=== PATIENT | female | born 1930 | race Caucasian/White ===

== ENCOUNTER → 2019-04-06 | Outpatient (CLI) | payer OTHER ==
--- NOTE | 2019-04-06 13:00 | Diagnostic Imaging Report ---
INDICATION: Left hip pain. TIME OF EXAM: 11:34 a.m. Two views of the left hip were obtained. There is generalized demineralization. Femoroacetabular alignment is normal. There is superior joint space narrowing noted. Femoral head and neck appear to be intact. No fracture is seen. There is a questionable fracture of the left superior pubic ramus, age indeterminate. IMPRESSION: Demineralization and left hip degenerative change. No acute hip fracture is identified. There is a questionable age indeterminate fracture of the left superior pubic ramus. CT through the pelvis may be useful for further evaluation. Dictated by: Dictated on workstation # [id number]
== END ==
LOC: RAD FS 11:29
PROVIDERS: ATTEND Nurse Practitioner
DX: M16.12 Unilateral primary osteoarthritis, left hip (principal)
CPT/HCPCS: 73502

== ENCOUNTER → 2019-06-05 | Outpatient (CLI) | payer OTHER ==
--- NOTE | 2019-06-05 15:22 | Diagnostic Imaging Report ---
INDICATION: Right hip pain. TIME OF EXAM: 2:46 PM FINDINGS: 3 views of the right hip are obtained. There is an intramedullary damion extending through the right femur. Femoral acetabular alignment is normal. The femoral head and neck are intact. No fractures are seen. Right-sided rami appear intact. IMPRESSION: Postop changes in the right femur. No acute bony abnormality is detected. Dictated by: Dictated on workstation # [id number]
== END ==
LOC: RAD FS 14:36
PROVIDERS: ATTEND Nurse Practitioner
DX: M25.551 Pain in right hip (principal); Z98.890 Other specified postprocedural states
CPT/HCPCS: 73502

== ENCOUNTER 2019-06-28 11:59 | Emergency (ER) | payer MEDICARE, OTHER ==
[~2019-06-28] VITALS: Ht 165 cm; Wt 50.0 kg
--- NOTE | 2019-06-28 12:07 | ED Neurological Problem ---
General Stated Complaint: STROKE LIKE SYMPTOMS Source: EMS Exam Limitations: clinical condition History of Present Illness Date Seen by Provider: Jun 28, 2019 Time Seen by Provider: 11:55 Initial Comments The patient is an 89-year-old female brought in by EMS for evaluation of strokelike symptoms. She was found by her proximally 45 minutes prior to arrival and was noted to have some right-sided weakness. He had left the home to run some errands and stated that she was last known to be well approximately 3 hours prior to arrival (approx 0900). EMS reports an elevated blood pressure upon their arrival and states that she has been gazing to the left. Family is not present at this time and the patient is unable to provide any history due to her condition. It is unclear if the patient is a full code. Rhythm strip provided by EMS suggest atrial fibrillation but it is unclear if the patient is on anticoagulation. Timing/Duration: 1-3 hours Severity: severe Associated Symptoms: other (unable to speak, right-sided weakness) Allergies and Home Medications Allergies Coded Allergies: No Known Drug Allergies (Unverified , 06/28/19) Patient Home Medication List Home Medication List Reviewed: Yes Review of Systems Review of Systems Constitutional: no symptoms reported Eyes: No Symptoms Reported Ears, Nose, Mouth, Throat: no symptoms reported Respiratory: no symptoms reported Cardiovascular: no symptoms reported Gastrointestinal: no symptoms reported Genitourinary: no symptoms reported Musculoskeletal: no symptoms reported Skin: no symptoms reported Psychiatric/Neurological: Unable to Move Lower Ext, Unable to Move Upper Ext (cannot move right extremity), Weakness (on right side), Other Hematologic/Lymphatic: No Symptoms Reported All Other Systems Reviewed Negative Unless Noted: Yes Past Abjrlhx-Csvihy-Ycloui Hx Past Med/Social Hx: Reviewed Nursing Past Med/Soc Hx Physical Exam Vital Signs Vital Signs - First Documented 06/28/19 12:23 Temp 36.4 Pulse 87 Resp 18 B/P (MAP) 201/92 (128) Pulse Ox 95 O2 Delivery Room Air Capillary Refill : Height, Weight, BMI Height: '" Weight: lbs. oz. kg; BMI Method: General Appearance: WD/WN, no apparent distress HEENT: pharynx normal, other (gaze deviation to left, PERRLA) Neck: full range of motion, supple, normal inspection Respiratory: lungs clear, normal breath sounds, no respiratory distress, no accessory muscle use Cardiovascular: no edema, no JVD, tachycardia, irregularly irregular Peripheral Pulses: 2+ Radial Pulses (R), 2+ Radial Pulses (L) Gastrointestinal: normal bowel sounds, non tender, soft, no pulsatile mass Extremities: non-tender, normal inspection, no pedal edema Neurologic/Psychiatric: alert, normal mood/affect, other (unable to speak, gaze preference to the left, right-sided weakness) Crainal Nerves: PERRL, other (not speaking, no facial droop noted) Skin: normal color, warm/dry Stroke Onset of Symptoms Date of Onset of Symptoms: Jun 28, 2019 Time of Symptom Onset: 09:00 Onset of Symptoms: Yes Symptoms onset unknown: Yes NIH Stroke Scale Assessment Select: Initial Level of Consciousness: 1=Aroused by mild stimuli (1), Level of Consciousness-Questions: 2=Answer neither question (2), LOC Commands: 1=Performs one task (1), Gaze: Forced Deviation (2), Visual Pugh: 0=No visual loss (0), Facial Movement (Facial Paresis): 1=Minor paralysis (1), Motor Function-Arms Left: 3=No effort/gravity (3), Motor Function-Legs Right: 4=No movement (4), Motor Function-Legs Left: 4=No movement (4), Limb Ataxia: 0=Absent (0), Sensory: 2=Severe to total loss (2), Best Language: 3=Mute (3), Dysarthria: 2=Severe dysarthria (2), Extinction & Inattention: 2=ProfoundHemiInattention (2), Total: 27 Stroke Thrombolytic Exclusion Intracranial Hemorrhage: Yes IV - TPa Received IV - TPa Procedure Performed?: No Progress/Results/Core Measures Results/Orders Lab Results Laboratory Tests Test 06/28/19 12:06 06/28/19 12:10 06/28/19 12:25 Range/Units Glucometer 196 H 70-110 MG/DL White Blood Count 16.1 H 4.3-11.0 10^3/uL Red Blood Count 3.93 L 4.35-5.85 10^6/uL Hemoglobin 13.1 11.5-16.0 G/DL Hematocrit 39 35-52 % Mean Corpuscular Volume 100 H 80-99 FL Mean Corpuscular Hemoglobin 33 25-34 PG Mean Corpuscular Hemoglobin Concent 33 32-36 G/DL Red Cell Distribution Width 12.3 10.0-14.5 % Platelet Count 337 130-400 10^3/uL Mean Platelet Volume 8.7 7.4-10.4 FL Neutrophils (%) (Auto) 82 H 42-75 % Lymphocytes (%) (Auto) 11 L 12-44 % Monocytes (%) (Auto) 5 0-12 % Eosinophils (%) (Auto) 1 0-10 % Basophils (%) (Auto) 1 0-10 % Neutrophils # (Auto) 13.2 H 1.8-7.8 X 10^3 Lymphocytes # (Auto) 1.7 1.0-4.0 X 10^3 Monocytes # (Auto) 0.8 0.0-1.0 X 10^3 Eosinophils # (Auto) 0.1 0.0-0.3 10^3/uL Basophils # (Auto) 0.1 0.0-0.1 10^3/uL Prothrombin Time 13.1 12.2-14.7 SEC INR Comment 1.0 0.8-1.4 Activated Partial Thromboplast Time 20 L 24-35 SEC Urine Color YELLOW Urine Clarity CLEAR Urine pH 7.0 5-9 Urine Specific [place] 1.025 H 1.016-1.022 Urine Protein NEGATIVE NEGATIVE Urine Glucose (UA) TRACE H NEGATIVE Urine Ketones TRACE H NEGATIVE Urine Nitrite NEGATIVE NEGATIVE Urine Bilirubin NEGATIVE NEGATIVE Urine Urobilinogen 0.2 < = 1.0 MG/DL Urine Leukocyte Esterase NEGATIVE NEGATIVE Urine RBC (Auto) NEGATIVE NEGATIVE Urine RBC NONE /HPF Urine WBC NONE /HPF Urine Squamous Epithelial Cells RARE /HPF Urine Crystals NONE /LPF Urine Bacteria NONE /HPF Urine Casts NONE /LPF Urine Mucus NEGATIVE /LPF Urine Culture Indicated NO My Orders Orders - KAI IGLESIAS DO Ct Head Wo-R/O Stroke (06/28/19 12:01) Cbc With Automated Diff (06/28/19 12:01) Protime With Inr (06/28/19 12:01) Partial Thromboplastin Time (06/28/19 12:01) Comprehensive Metabolic Panel (06/28/19 12:01) Troponin I Fs (06/28/19 12:01) Ua Culture If Indicated (06/28/19 12:01) Chest 1 View Ap/Pa Only (06/28/19 12:01) Catheter(Urinary) Insert & Ass 03,15 (06/28/19 12:) Ekg Tracing (06/28/19 12:) Nothing By Mouth (06/28/19 Dinner) Accucheck Stat ONCE (06/28/19:) Ed Iv/Invasive Line Start (06/28/19:) Ed Iv/Invasive Line Start (06/28/19 12:) Vital Signs Stroke Patient Q15M (06/28/19 12:) O2 (06/28/19 12:) Intake & Output 06,14,22 (06/28/19 12:) Monitor-Rhythm Ecg Trace Only (06/28/19:) Dysphagia Screening Tool (06/28/19:) Manual Differential (06/28/19 12:10) Nicardipine Iv For Drip (Cardene I.V. (O (06/28/19 12:27) Ns (Ivpb) (Sodium Chloride 0.9%) (06/28/19 12:28) Vital Signs/I&O 06/28/19 12:23 Temp 36.4 Pulse 87 Resp 18 B/P (MAP) 201/92 (128) Pulse Ox 95 O2 Delivery Room Air Progress Progress Note : Progress Note @1207 - [facility] transfer line contacted this time. Awaiting cloudy images to be sent and neurosurgeon a call back. @1230 - Case was d/w Dr. Montenegro (transfer) and Dr. Rand (neurosx) who accepts the ER to ER transfer. They stated to titrate the patient's blood pressure to a systolic between 140 and 160. Cardene drip started. The neurosurgeon states it is very unlikely the patient will survive this and may not even survive the transfer. This was discussed at length with the patient's son and who state that they do not want her to be resuscitated, specifically they want her to be a DNR/DNI at this time. I also discussed this with the patient's daughter who is a pharmacist. She also agreed. The patient is critical which will be transported by EMS at this time to [facility]. Comment @1205 - Atrial fibrillation with RVR, rate of 105, normal axis, no acute ischemic findings noted, no STEMI, reviewed and interpreted by myself Departure Impression Primary Impression: Intraparenchymal hemorrhage of brain Additional Impressions: Right sided weakness Atrial fibrillation Hypertension Anticoagulated Disposition: 02 XFER SHT-TRM HOSP Condition: Critical Admissions Decision to Admit Reason: Admit from ER (General) Transfer Transfer Reason: Exceeds level of care Time Spoke to Accepting Phy: 12:30 Transfer Progress Notes This was discussed with the transfer physician Dr. Montenegro and also the neurosurgeon Dr. Rand at [facility]. Accepts the ER to ER transfer and agree with the plan to start nicardipine and would like the systolic blood pressure to be maintained between 140 and 160. This is been discussed with EMS. Dr. Rand points out that the patient is extremely critical and not only is unlikely to survive but is also unlikely to survive the transfer. This is been discussed at length with the family who agree that the patient should be a DO NOT RESUSCITATE/DNI. Transfer Time: 12:58 Transfer Facility: [facility] Method of Transfer: EMS Departure-Patient Inst. Referrals: CHONG APODACA MD (PCP/Family) Primary Care Physician KAI IGLESIAS DO Jun 28, 2019 12:07
[2019-06-28] MEDS ORDERED: HYDR-4342 (12:22)
[2019-06-28] MEDS ORDERED: APIX2.5T (12:22)
[2019-06-28] MEDS ORDERED: DILT-27 (12:22)
[2019-06-28] MEDS ORDERED: TIZA2TAB4 (12:22)
[2019-06-28] MEDS ORDERED: ATOR10TA66 (12:22)
[2019-06-28] MEDS ORDERED: PROP60CA36 (12:22)
[2019-06-28 12:25] LABS: HEMATOCRIT 39 % (35-52); HEMOGLOBIN 13.1 G/DL (11.5-16.0); MEAN CORPUSCULAR HEMOGLOBIN 33 PG (25-34); MEAN CORPUSCULAR HGB CONC 33 G/DL (32-36); MEAN CORPUSCULAR VOLUME 100 FL (80-99); PLATELET COUNT 337 10^3/uL (130-400); RED CELL DISTRIBUTION WIDTH 12.3 % (10.0-14.5); WHITE BLOOD COUNT 16.1 10^3/uL (4.3-11.0)
[2019-06-28 12:26] LABS: BASOPHILS # (AUTO) 0.1 10^3/uL (0.0-0.1); BASOPHILS % (AUTO) 1 % (0-10); EOSINOPHILS # (AUTO) 0.1 10^3/uL (0.0-0.3); EOSINOPHILS % (AUTO) 1 % (0-10); LYMPHOCYTES # (AUTO) 1.7 X 10^3 (1.0-4.0); LYMPHOCYTES % (AUTO) 11 % (12-44); MEAN PLATELET VOLUME 8.7 FL (7.4-10.4); MONOCYTES # (AUTO) 0.8 X 10^3 (0.0-1.0); MONOCYTES % (AUTO) 5 % (0-12); NEUTROPHILS # (AUTO) 13.2 X 10^3 (1.8-7.8); NEUTROPHILS % (AUTO) 82 % (42-75)
--- NOTE | 2019-06-28 12:26 | Diagnostic Imaging Report ---
PROCEDURE: CT head wo r/o stroke. TECHNIQUE: Multiple contiguous axial images were obtained through the brain without the use of intravenous contrast. Auto Exposure Controls were utilized during the CT exam to meet ALARA standards for radiation dose reduction. INDICATION: Right-sided weakness. No prior studies are available for comparison. There is a large area of acute intra-parenchymal hemorrhage involving the left cerebral hemisphere. The large intracranial hematoma appears to be centered in the left basal ganglia measuring 8.6 cm AP by 4.2 cm transverse. This does produce significant mass effect on the left lateral ventricle with left to right midline shift of 13 mm. There is moderate amount of surrounding low density present as well consistent with edema. There is hyperdensity identified within the lateral ventricles bilaterally consistent with intraventricular hemorrhage. There is acute hemorrhage within the 3rd and 4th ventricle as well. A minimal amount of blood seen layering within the right occipital horn. Visualized paranasal sinuses are clear. 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 This does produce mass effect with midline shift left to right. This likely is secondary to hypertension. Results were discussed with Dr. Thorne at the emergency Department prior to this dictation. Dictated by: Dictated on workstation # [id number]
[2019-06-28] MEDS ORDERED: niCARdipine IV FOR DRIP 50 MG KIT ONE (12:27)
[2019-06-28] MEDS ORDERED: NS (IVPB) 250 ML ONE (12:28)
[2019-06-28 12:34] LABS: CLARITY,URINE CLEAR; COLOR,URINE YELLOW; GLUCOSE, URINE (UA) TRACE (NEGATIVE); PROTEIN,URINE NEGATIVE (NEGATIVE)
[2019-06-28 12:35] LABS: BILIRUBIN,URINE NEGATIVE (NEGATIVE); KETONES,URINE TRACE (NEGATIVE); LEUKOCYTE ESTERASE ,URINE NEGATIVE (NEGATIVE); NITRITE,URINE NEGATIVE (NEGATIVE); SQUAMOUS EPITHELIAL CELL,UR RARE /HPF
[2019-06-28 12:38] LABS: PROTHROMBIN TIME PATIENT 13.1 SEC (12.2-14.7)
[2019-06-28 12:40] LABS: SODIUM 138 MMOL/L (135-145)
[2019-06-28 12:41] LABS: ALANINE AMINOTRANSFERASE 12 U/L (0-55); ALBUMIN 3.9 GM/DL (3.2-4.5); ALKALINE PHOSPHATASE 155 U/L (40-136); BILIRUBIN,TOTAL 0.5 MG/DL (0.1-1.0); BUN/CREATININE RATIO 25; CALCIUM 9.5 MG/DL (8.5-10.1); CARBON DIOXIDE 23 MMOL/L (21-32); CHLORIDE 100 MMOL/L (98-107); CREATININE SERUM 0.48 MG/DL (0.60-1.30); GFR ESTIMATED > 60; GLUCOSE 215 MG/DL (70-105); POTASSIUM 3.5 MMOL/L (3.6-5.0); TOTAL PROTEIN 6.8 GM/DL (6.4-8.2)
[2019-06-28 12:45] LABS: BAND NEUTROPHILS 5 %; BASOPHILS % (MANUAL) 1 %; EOSINOPHILS % (MANUAL) 2 %; LYMPHOCYTES % (MANUAL) 13 %; MONOCYTES % (MANUAL) 5 %; NEUTROPHILS % (MANUAL) 74 %; RBC MORPH NORMAL
--- NOTE | 2019-06-28 12:46 | Diagnostic Imaging Report ---
INDICATION: Stroke. TECHNIQUE/COMPARISON: A frontal chest was obtained at 12:39 PM. There is no prior study for comparison. FINDINGS: There is prominent cardiomegaly with post sternotomy change. There is a retrocardiac density which is probably a large hiatal hernia, consider correlation with lateral view. There is no definite consolidation. There are mild chronic appearing increased interstitial markings. There is no pneumothorax or pleural fluid. IMPRESSION: Cardiomegaly with post sternotomy change. Probable large hiatal hernia, correlate with lateral view as indicated. Underlying chronic appearing increased interstitial markings with no acute infiltrate or pleural fluid. Dictated by: Dictated on workstation # [id number]
[2019-06-28 12:55] VITALS: BP 151/62
--- NOTE | 2019-06-28 12:55 | NUR ---
Nicardipine drip adjusted to 2.5mg/hour at this time
--- NOTE | 2019-06-28 13:05 | NUR ---
Number to call for report [phone] for EMS
--- NOTE | 2019-06-28 13:05 | NUR ---
Marylu allan continuted in route to [facility] on the fields with [facility].
[2019-06-28] MEDS ORDERED: niCARdipine IV 50 MG in NS (IVPB) 230 ML IV STA (14:36)
== END 2019-06-28 13:05 | disposition short-term general hospital (02) ==
LOC: EDUNIT# 11:59 → ER FS 12:00
DX: I61.8 Other nontraumatic intracerebral hemorrhage (principal); I48.91 Unspecified atrial fibrillation; I10 Essential (primary) hypertension; Z79.01 Long term (current) use of anticoagulants
CPT/HCPCS: 36415; 51702; 70450; 71045; 80053; 81000; 82962; 84484; 85007; 85027; 85610; 85730; 93005